=== PATIENT | male | born 1995 | race American Indian/Alaskan Native ===

== ENCOUNTER 2020-08-07 14:58 | Emergency (ER) | payer SELFPAY ==
[2020-08-07 15:07] VITALS: BP 119/61
[2020-08-07] MEDS ORDERED: LIDOCAINE-MPF (1%) 10 MG/1 ML VIAL 5 ML INFILTRATI ONE (16:58)
--- NOTE | 2020-08-07 17:05 | Emergency Department Report ---
ED Male HPI - General Chief complaint: Urogenital-Male Stated complaint: RT SIDE/PRIVATE DISCOMFORT Time Seen by Provider: 08/07/20 16:04 Source: patient Mode of arrival: Ambulatory Limitations: No Limitations - History of Present Illness Initial comments: 45-year-old F [place] male that [facility] complaining chlamydia from partner presents [facility] seeking further evaluation treatment options. Reports a burning tingling pain radiates across his suprapubic region and states he has had feeling " not right". He reports having occasional tingling sensation to his chest which is worse secondary to the STD so came to [facility] to get a treated reports no hemoptysis no hematemesis no hematochezia, no fever, chills, sweats no odynophagia no dysphagia no dyspnea. Complaint: penile discharge - Related Data Previous Rx's Medication Instructions Recorded Last Taken Type Azithromycin [Zithromax TAB] 1,000 mg PO ONCE #2 tablet 08/07/20 Unknown Rx metroNIDAZOLE [Flagyl] 2,000 mg PO ONCE #4 tablet 08/07/20 Unknown Rx Allergies Allergy/AdvReac Type Severity Reaction Status Date / Time No Known Allergies Allergy Unverified 08/07/20 15:01 ED Review of Systems ROS: Stated complaint: RT SIDE/PRIVATE DISCOMFORT Other details as noted in HPI Comment: All other systems reviewed and negative ED Past Medical Hx - Past Medical History Previous Medical History?: No - Surgical History Past Surgical History?: No - Social History Smoking Status: Never Smoker Substance Use Type: None - Medications Home Medications: Home Medications Medication Instructions Recorded Confirmed Last Taken Type Azithromycin [Zithromax TAB] 1,000 mg PO ONCE #2 tablet 08/07/20 Unknown Rx metroNIDAZOLE [Flagyl] 2,000 mg PO ONCE #4 tablet 08/07/20 Unknown Rx ED Physical Exam - General Limitations: No Limitations General appearance: in no apparent distress - Head Head exam: Present: atraumatic, normocephalic - Eye Eye exam: Present: normal appearance - ENT ENT exam: Present: mucous membranes moist - Neck Neck exam: Present: normal inspection - Respiratory Respiratory exam: Present: normal lung sounds bilaterally. Absent: respiratory distress - Cardiovascular Cardiovascular Exam: Present: regular rate, normal rhythm. Absent: systolic murmur, diastolic murmur, rubs, gallop - GI/Abdominal GI/Abdominal exam: Present: soft, normal bowel sounds - Rectal Rectal exam: Present: deferred - Extremities Exam Extremities exam: Present: normal inspection - Back Exam Back exam: Present: normal inspection - Neurological Exam Neurological exam: Present: alert, oriented X3 - Psychiatric Psychiatric exam: Present: normal affect, normal mood - Skin Skin exam: Present: warm, dry, intact, normal color. Absent: rash ED Course Vital Signs 08/07/20 15:06 Temperature 97.6 F Pulse Rate 72 Respiratory 20 Rate Blood Pressure 119/61 O2 Sat by Pulse 98 Oximetry ED Medical Decision Making - Medical Decision Making 25-year-old [place] male strong suspicion for an STD contact having some penile rotation on urination but a normal examination. No pain to the abdomen on examination. Discussed with him the appropriate location for STD evaluation been health department or a local clinic with his primary care provider. Was advised he had prepaid registrations of this region move forward with treatment for his STD symptoms. Critical care attestation.: If time is entered above; I have spent that time in minutes in the direct care of this critically ill patient, excluding procedure time. ED Disposition Clinical Impression: Possible exposure to STD Disposition: DC-01 TO HOME OR SELFCARE Is pt being admited?: No Does the pt Need Aspirin: No Condition: Stable Instructions: Safe Sex (ED), Sexually Transmitted Diseases (ED), Chlamydia Infection (ED) Prescriptions: metroNIDAZOLE [Flagyl] 2,000 mg PO ONCE #4 tablet Azithromycin [Zithromax TAB] 1,000 mg PO ONCE #2 tablet Referrals: PRIMARY CARE, [Primary Care Provider] - 3-5 Days
== END 2020-08-07 17:53 | disposition home or self-care (01) ==
LOC: ED 14:58
DX: R36.9 Urethral discharge, unspecified (principal); Z20.2 Contact with and (suspected) exposure to infections with a predominantly sexual mode of transmission; Z79.899 Other long term (current) drug therapy
CPT/HCPCS: 96372; 99282; J0696

== ENCOUNTER 2020-10-30 10:57 | Emergency (ER) | payer SELFPAY ==
[2020-10-30 11:18] VITALS: BP 127/70
[2020-10-30 12:09] LABS: Bacteria,Urine 1+ /HPF (Negative); Bilirubin,Urine NEG (Negative); Blood,Urine MOD (Negative); Color,Urine Yellow (Yellow); Urobilinogen,Urine < 2.0 mg/dL (<2.0)
[2020-10-30 12:10] LABS: WBC,Urine > 182.0 /HPF (0.0-6.0)
[2020-10-30 12:17] LABS: Basophils % (Auto) 0.3 % (0.0-1.8); Eosinophils # (Auto) 0.1 K/mm3 (0.0-0.4); Eosinophils % (Auto) 0.7 % (0.0-4.3); Hematocrit 45.9 % (35.5-45.6); Hemoglobin 15.5 gm/dl (11.8-15.2); Lymphocytes % (Auto) 12.6 % (13.4-35.0); Mean Corpuscular HGB Conc 34 % (32-34); Mean Corpuscular Volume 89 fl (84-94); Monocytes # (Auto) 0.6 K/mm3 (0.0-0.8); Monocytes % (Auto) 7.3 % (0.0-7.3); Platelet Count 198 K/mm3 (140-440); Red Blood Count 5.14 M/mm3 (3.65-5.03)
[2020-10-30 12:41] LABS: Alanine Aminotransferase 12 units/L (7-56); Albumin 4.3 g/dL (3.9-5); BUN/Creatinine Ratio 9; Blood Urea Nitrogen 9 mg/dL (9-20); Calcium 9.6 mg/dL (8.4-10.2); Hemolysis Index 3
[2020-10-30] MEDS ORDERED: LIDOCAINE-MPF (1%) 10 MG/1 ML VIAL 5 ML INFILTRATI ONE (13:20)
--- NOTE | 2020-10-30 13:48 | Emergency Department Report ---
ED Male HPI - General Chief complaint: Abdominal Pain Stated complaint: ABD PAIN Time Seen by Provider: 10/30/20 12:51 Source: patient Mode of arrival: Ambulatory Limitations: No Limitations - History of Present Illness Initial comments: 25-year-old -[place] male presents to the emergency room complaining of penile discharge and feels like he needs to be treated for chlamydia. Patient states that he was seen here a few weeks ago and was treated but is still having symptoms. Upon review of patient's chart he was here August 07 for the same complaint and was treated for gonorrhea, chlamydia and trichomonas. Patient denies any fever chills no nausea no vomiting. Patient states that the pain is in his pelvis that shoots down to his testicles. MD Complaint: penile discharge Onset/Timin -: days(s) Location: penis, right inguinal region Severity scale (0 -10): 7 Quality: burning Consistency: intermittent Improves with: none Worsens with: urination new sexual partner discharge, blood in urine, dysuria - Related Data Sexually active: Yes (Unprotected) Previous Rx's Medication Instructions Recorded Last Taken Type Azithromycin [Zithromax TAB] 1,000 mg PO ONCE #2 tablet 08/07/20 Unknown Rx metroNIDAZOLE [Flagyl] 2,000 mg PO ONCE #4 tablet 08/07/20 Unknown Rx Azithromycin 1,000 mg PO ONCE #2 tablet 10/30/20 Unknown Rx Doxycycline Hyclate [Doxycycline 100 mg PO Q12HR 10 Days #20 tab 10/30/20 Unknown Rx Hyclate TAB] metroNIDAZOLE [Flagyl] 2,000 mg PO ONCE #4 tablet 10/30/20 Unknown Rx Allergies Allergy/AdvReac Type Severity Reaction Status Date / Time No Known Allergies Allergy Unverified 08/07/20 15:01 ED Review of Systems ROS: Stated complaint: ABD PAIN Other details as noted in HPI Comment: All other systems reviewed and negative ED Past Medical Hx - Past Medical History Previous Medical History?: No - Surgical History Past Surgical History?: No - Social History Smoking Status: Current Every Day Smoker Substance Use Type: Alcohol, Marijuana - Medications Home Medications: Home Medications Medication Instructions Recorded Confirmed Last Taken Type Azithromycin [Zithromax TAB] 1,000 mg PO ONCE #2 tablet 08/07/20 Unknown Rx metroNIDAZOLE [Flagyl] 2,000 mg PO ONCE #4 tablet 08/07/20 Unknown Rx Azithromycin 1,000 mg PO ONCE #2 tablet 10/30/20 Unknown Rx Doxycycline Hyclate [Doxycycline 100 mg PO Q12HR 10 Days #20 tab 10/30/20 Unknown Rx Hyclate TAB] metroNIDAZOLE [Flagyl] 2,000 mg PO ONCE #4 tablet 10/30/20 Unknown Rx ED Physical Exam - General Limitations: No Limitations General appearance: alert, in no apparent distress - Head Head exam: Present: atraumatic, normocephalic - Eye Eye exam: Present: normal appearance - ENT ENT exam: Present: mucous membranes moist - GI/Abdominal GI/Abdominal exam: Present: soft - exam: Present: circumcision. Absent: testicular tenderness External exam: Present: other (Penile discharge) - Extremities Exam Extremities exam: Present: normal inspection, full ROM, tenderness - Back Exam Back exam: Present: normal inspection - Neurological Exam Neurological exam: Present: alert, oriented X3, normal gait - Psychiatric Psychiatric exam: Present: normal affect, normal mood - Skin Skin exam: Present: warm, dry, intact, normal color. Absent: rash ED Course Vital Signs 10/30/20 11:16 Temperature 98.1 F Pulse Rate 102 H Respiratory 16 Rate Blood Pressure 127/70 [Right] O2 Sat by Pulse 97 Oximetry ED Medical Decision Making - Lab Data Result diagrams: 10/30/20 11:45 10/30/20 11:45 - Medical Decision Making 25-year-old -[place] male presents to the emergency room complaining of penile discharge and feels like he needs to be treated for chlamydia. Patient states that he was seen here a few weeks ago and was treated but is still having symptoms. Upon review of patient's chart he was here August 07 for the same complaint and was treated for gonorrhea, chlamydia and trichomonas. Patient denies any fever chills no nausea no vomiting. Patient states that the pain is in his pelvis that shoots down to his testicles. Patient was given Rocephin 500 mg IM. Patient will be discharged home on doxycycline azithromycin and Flagyl. Patient is referred to the health department for full STD panel including HIV, herpes, hepatitis and syphilis. Critical care attestation.: If time is entered above; I have spent that time in minutes in the direct care of this critically ill patient, excluding procedure time. ED Disposition Clinical Impression: STD (male) Disposition: TO HOME OR SELFCARE Is pt being admited?: No Does the pt Need Aspirin: No Condition: Stable Instructions: Safe Sex Additional Instructions: Complete antibiotics as prescribed. Is very important for you to follow-up at the health department for full STD check which includes HIV, herpes, hepatitis and syphilis. Please inform your partners that you have been tested and treated. Prescriptions: Azithromycin 1,000 mg PO ONCE #2 tablet Doxycycline Hyclate [Doxycycline Hyclate TAB] 100 mg PO Q12HR 10 Days #20 tab metroNIDAZOLE [Flagyl] 2,000 mg PO ONCE #4 tablet Referrals: PRIMARY CARE, [Primary Care Provider] - 3-5 Days [facility] [Outside] - 3-5 Days
== END 2020-10-30 15:15 | disposition home or self-care (01) ==
LOC: ED 10:57
DX: A63.8 Other specified predominantly sexually transmitted diseases (principal)
CPT/HCPCS: 36415; 80053; 81001; 83690; 85025; 87591; 96372; 99283; J0696